=== PATIENT | female | born 1965 | race Caucasian/White ===

== ENCOUNTER 2017-05-31 14:33 | Inpatient (IN) | payer MEDICAID ==
[2017-05-31] MEDS ORDERED: ALPRAZolam 0.25 MG TAB PO PRN (18:56)
[2017-05-31] MEDS ORDERED: HYDROcodone/APAP 5-325MG 1 EACH TAB PO PRN (18:56)
[2017-05-31] MEDS ORDERED: ACETAMINOPHEN TAB 325 MG TAB PO PRN (18:56)
[2017-05-31] MEDS ORDERED: NALOXONE 0.4 MG/ML 1 ML VIAL IV PRN (18:56)
[2017-05-31] MEDS ORDERED: MELATONIN 3 MG TABLET PO PRN (18:56)
[2017-05-31] MEDS ORDERED: HYDROmorphone 2 MG/ML 1 ML SYRINGE IVP PRN (18:58)
[2017-05-31 19:51] LABS: ALT 59 U/L (9-52); AST 36 U/L (14-36); Albumin 3.2 g/dL (3.5-5.0); Alkaline Phosphatase 130 U/L (38-126); Anion Gap 11 mmol/L; Blood Urea Nitrogen 12 mg/dL (7-17); Calcium 9.1 mg/dL (8.4-10.2); Carbon Dioxide 29 mmol/L (22-30); Chloride 101 mmol/L (98-107); Glucose 288 mg/dL (74-99); Magnesium 1.7 mg/dL (1.6-2.3); Sodium 141 mmol/L (137-145); Total Bilirubin 0.2 mg/dL (0.2-1.3); Total Protein 5.9 g/dL (6.3-8.2)
[2017-05-31 19:55] LABS: Basophils % (A) 0 %; Eosinophils # (A) 0.1 k/uL (0-0.7); Eosinophils % (A) 1 %; HCT 31.7 % (34.0-46.0); HGB 10.1 gm/dL (11.4-16.0); Hypochromasia Slight; Lymphocytes # (A) 1.5 k/uL (1.0-4.8); Lymphocytes % (A) 20 %; MCH 28.7 pg (25.0-35.0); MCHC 31.9 g/dL (31.0-37.0); Mean Platelet Volume 8.1; Monocytes # (A) 0.2 k/uL (0-1.0); Monocytes % (A) 3 %; Neutrophils # (A) 5.6 k/uL (1.3-7.7); Neutrophils % (A) 74 %; Platelet Count 344 k/uL (150-450); RBC 3.52 m/uL (3.80-5.40); RDW 14.4 % (11.5-15.5); WBC 7.6 k/uL (3.8-10.6)
[2017-05-31 19:57] LABS: Potassium 3.9 mmol/L (3.5-5.1)
[2017-05-31] MEDS ORDERED: ALBUTEROL NEBULIZED 2.5 MG/3 ML INHALATION SCH (20:00)
[2017-05-31] MEDS ORDERED: IPRATROPIUM 0.5 MG/2.5 ML NEBU INHALATION SCH (20:00)
[2017-05-31] MEDS ORDERED: ALBUTEROL NEB (CONC) 2.5 MG/0.5 ML INHALATION SCH (20:00)
[2017-05-31 20:28] VITALS: BMI 34.7
--- NOTE | 2017-05-31 20:33 | XR ---
EXAMINATION TYPE: XR chest 1V portable DATE OF EXAM: 05/31/2017 CLINICAL HISTORY: Difficulty breathing and pneumonia. TECHNIQUE: Single AP portable upright view of the chest is obtained. COMPARISON: None. FINDINGS: There is chronic parenchymal change with patchy right medial basilar opacity. Suspect smal l left pleural effusion and associated left basilar atelectasis and/or infiltrate. Upper lungs are cl ear without pneumothorax. Cardiac silhouette size is stable and upper limits of normal with atheroscl erotic aorta. Osseous structures are intact. IMPRESSION: Suspicious patchy right medial basilar infiltrate and/or atelectasis with small left pleu ral effusion and associated left basilar atelectasis. Progress two-view chest x-ray advised.
[2017-05-31] MEDS: cefTRIAXone IN SWFI 1,000 MG/10 ML SYRINGE IVP SCH (20:56)
[2017-05-31] MEDS ORDERED: IPRATROPIUM-ALBUTEROL 3 ML NEB INHALATION PRN (20:56)
[2017-05-31] MEDS: SODIUM CHLORIDE 0.9% 1,000 ML IV SCH (20:56)
[2017-05-31] MEDS: AZITHROMYCIN 500 MG in SODIUM CHLORIDE 0.9% 250 ML IVPB SCH (20:57)
[2017-05-31] MEDS: INSULIN ASPART 100 UNIT/ML 1 ML 10 ML VIAL SQ SCH (20:57)
[2017-05-31] MEDS: HEPARIN SODIUM,PORCINE 5,000 UNIT/ML 1 ML VIAL SQ SCH (20:57)
[2017-05-31] MEDS: SYMBICORT 160-4.5 MCG INHALER INHALATION SCH (20:57)
[2017-05-31] MEDS: methylPREDNISolone SOD SUCCI 125 MG/2 ML VIAL IV SCH (20:58)
[2017-05-31 23:36] LABS: Hemoglobin A1C 8.6 % (4.0-6.0)
[2017-06-01 00:59] LABS: Appearance,Urine Clear (Clear); Bilirubin,Urine Negative (Negative); Blood,Urine Negative (Negative); Color,Urine Light Yellow; Glucose,Urine (UA) 4+ (Negative); Ketones,Urine Negative (Negative); Leukocyte Esterase,Urine Negative (Negative); Nitrite,Urine Negative (Negative); Protein,Urine Negative (Negative); Specific Gravity,Urine 1.022 (1.001-1.035); Urobilinogen,Urine <2.0 mg/dL (<2.0)
[2017-06-01] MEDS: methylPREDNISolone SOD SUCCI 125 MG/2 ML VIAL IV SCH ×4 (05:14→23:17)
[2017-06-01 06:51] LABS: Basophils % (A) 0 %; Eosinophils % (A) 0 %; HCT 36.4 % (34.0-46.0); Hypochromasia Moderate; Lymphocytes % (A) 12 %; MCH 28.4 pg (25.0-35.0); MCHC 30.3 g/dL (31.0-37.0); MCV 93.7 fL (80.0-100.0); Mean Platelet Volume 8.6; Monocytes # (A) 0.1 k/uL (0-1.0); Monocytes % (A) 1 %; Neutrophils # (A) 6.7 k/uL (1.3-7.7); Neutrophils % (A) 85 %; Platelet Count 354 k/uL (150-450); RBC 3.89 m/uL (3.80-5.40); RDW 14.8 % (11.5-15.5); WBC 7.9 k/uL (3.8-10.6)
[2017-06-01 07:14] LABS: Blood Urea Nitrogen 13 mg/dL (7-17); Chloride 99 mmol/L (98-107)
[2017-06-01 07:29] LABS: Glucose,Whole Blood 437 mg/dL (75-99)
[2017-06-01 07:34] LABS: Anion Gap 12 mmol/L; Calcium 9.7 mg/dL (8.4-10.2); Carbon Dioxide 26 mmol/L (22-30); Sodium 137 mmol/L (137-145)
[2017-06-01] MEDS ORDERED: INSULIN REGULAR BOLUS (FROM DRIP BAG) IV ONE (07:53)
[2017-06-01 07:57] LABS: Glucose 535 mg/dL (74-99)
[2017-06-01] MEDS: INSULIN ASPART 100 UNIT/ML 1 ML 10 ML VIAL SQ SCH ×3 (08:00→17:30)
[2017-06-01] MEDS: amLODIPine 10 MG TAB PO SCH (08:05)
[2017-06-01] MEDS: METOPROLOL SUCCINATE (ER) 100 MG TAB.ER.24H PO SCH (08:05)
[2017-06-01] MEDS: PANTOPRAZOLE 40 MG TABLET PO SCH (08:05)
[2017-06-01] MEDS: LOSARTAN 50 MG TAB PO SCH (08:05)
[2017-06-01] MEDS: HEPARIN SODIUM,PORCINE 5,000 UNIT/ML 1 ML VIAL SQ SCH ×2 (08:05→21:39)
[2017-06-01] MEDS: metFORMIN 500 MG TAB PO SCH ×2 (08:07→23:17)
[2017-06-01] MEDS: INSULIN REGULAR 100 UNIT in SODIUM CHLORIDE 0.9% 100 ML IV SCH ×3 (08:39→11:16)
[2017-06-01 08:55] LABS: Glucose,Whole Blood 401 mg/dL (75-99)
[2017-06-01 09:09] LABS: Glucose,Whole Blood 488 mg/dL (75-99)
[2017-06-01] MEDS: IPRATROPIUM-ALBUTEROL 3 ML NEB INHALATION SCH ×4 (09:53→20:02)
[2017-06-01] MEDS: SYMBICORT 160-4.5 MCG INHALER INHALATION SCH ×2 (09:56→20:02)
[2017-06-01 09:58] LABS: Glucose,Whole Blood 444 mg/dL (75-99)
--- NOTE | 2017-06-01 10:00 | HP ---
HISTORY AND PHYSICAL CHIEF COMPLAINT: Shortness of breath, cough and hemoptysis. HISTORY OF PRESENT ILLNESS: This 51-year-old woman with a past medical history of COPD, diabetes, hypertension, history pneumonia, being followed by primary physician in [facility] presented to [facility] about 5 days ago with complaints of shortness of breath, cough and hemoptysis. Right lower pneumonia suspected. CT scan showed lymph node enlargement also. The patient was given broad-spectrum IV antibiotics. The patient apparently had also on presentation. Over the past several days the patient is not making significant improvement. The pneumonia was worsening and the patient also developed hypoxia and as well as new pleural effusion also and physician in [place] discussed the case with us and directly transferred the patient to [facility]. The patient apparently had flu symptoms 2 weeks prior to the onset. Otherwise there is no history of fever, rigors, chills. No headache, loss of consciousness, seizures. PAST MEDICAL HISTORY: History of COPD, diabetes, hypertension, history pneumonia. MEDICATIONS: Prior to admission, home medications are: 1. Glucophage 1000 mg p.o. b.i.d. 2. Glucotrol 5 mg p.o. daily. 3. Norvasc 10 mg p.o. daily. 4. Ventolin 2.5 q.6h p.r.n. 5. Toprol-XL 100 mg daily. 6. Cozaar 100 mg daily. 7. Symbicort 80/4.5 two puffs b.i.d. ALLERGIES: HYDROCHLOROTHIAZIDE. FAMILY HISTORY: No history of any heart disease or strokes in the family. SOCIAL HISTORY: Previous history of smoking and alcohol. REVIEW OF SYSTEMS: ENT: No diminished hearing or vision. CARDIOVASCULAR: No angina or palpitations. RESPIRATORY: As mentioned earlier. GI: No nausea. : No dysuria. NERVOUS SYSTEM: No numbness or weakness. ALLERGY/IMMUNOLOGY: No asthma. MUSCULOSKELETAL: As mentioned earlier. HEMATOLOGY/ONCOLOGY: No anemia. ENDOCRINE: Diabetes. CONSTITUTIONAL: As mentioned earlier. DERMATOLOGY: Negative. RHEUMATOLOGY: Negative. PSYCHIATRY: As mentioned earlier. PHYSICAL EXAMINATION: Alert and oriented x3. Pulse is 106. Blood pressure is 131/76, respiration 20, temperature 98 degrees, pulse ox 94% on supplement 2 L nasal cannula. HEENT: Conjunctivae normal. Oral mucosa moist. NECK: No jugular venous distention. No carotid bruit. No lymph node enlargement. Breathing efforts are markedly increased CARDIOVASCULAR: S1, S2 muffled. No S3, no S4. RESPIRATORY: Breath sounds diminished in the bases. Bilateral scattered and expiratory wheezing and rhonchi and crackles heard. No bronchial breathing heard. ABDOMEN: Soft, nontender. No mass palpable. LEGS: No edema, no swelling. NERVOUS SYSTEM: Higher functions as mentioned earlier, moves all 4 limbs, no focal motor sensory deficits. LYMPHATICS: No lymphadenopathy in the neck, axillae or groin. SKIN: No ulcer, rash, bleeding. LABS: WBC 7.2, hemoglobin 10.1, creatinine 0.50, glucose is 288, ALT is 59, alkaline phosphatase 130, albumin 3.2. ASSESSMENT: 1. Acute right lower lobe pneumonia possibly gram-negative, possibly community- acquired without improvement with acute hypoxic respiratory failure. 2. Anemia normocytic anemia of chronic disease. 3. Diabetes mellitus type 2. 4. Hypertension. 5. History of pneumonia. 6. History of chronic obstructive pulmonary disease. 7. History of nicotine dependence. 8. FULL CODE. RECOMMENDATIONS AND DISCUSSION: This 51-year-old woman who presented with multiple complex medical issues, we will monitor the patient closely. Continue the current management and symptomatic treatment. Will initiate broad-spectrum IV antibiotics, pneumonia protocol, bronchodilators , steroids. Monitor blood sugars closely. Consult Dr. Zamorano. Resume the home medications. Guarded prognosis because of multiple complex medical issues. Further recommendations to follow. Influenza has been requested. Further recommendations to follow. MMODL / IJN: [id number] / MTDD
[2017-06-01 10:07] LABS: Glucose,Whole Blood 355 mg/dL (75-99)
[2017-06-01 10:42] LABS: Glucose,Whole Blood 309 mg/dL (75-99)
[2017-06-01 11:10] LABS: Glucose,Whole Blood 272 mg/dL (75-99)
[2017-06-01 11:35] LABS: Glucose,Whole Blood 226 mg/dL (75-99)
[2017-06-01 13:32] LABS: Glucose,Whole Blood 244 mg/dL (75-99)
--- NOTE | 2017-06-01 15:33 | P.CNPUL ---
History of Present Illness Consult date: 06/01/17 Reason for consult: dyspnea, COPD History of present illness: Obese 51-year-old female patient with known history of COPD, diabetes, and hypertension, who lives in [place] and the patient got hospitalized to [facility] because of a right lower lobe pneumonia. During her hospital stay the patient was given a combination of Rocephin and Zithromax. A CAT scan of the chest was done that showed some abnormal mediastinal lymphadenopathy. Based on the fact that the CAT scan of the chest was abnormal and based on the fact that she was not being totally weaned off FiO2, the patient got moved to [facility] for further evaluation. The patient is clinically getting better. Currently she is on 2 L of oxygen by nasal cannula. I reviewed the chest x-ray it showed some limited residual right lower lobe pulmonary infiltrate. She is still bronchospastic and wheezy and this is typical of COPD exacerbation. She is still maintained on a combination of bronchodilators and steroids and the patient was placed on insulin drip for blood sugar control. No pleurisy. No hemoptysis. No fever. No chills. No night sweats. No children history. Her Legionella urine antigen that was done and [facility] was negative. Blood cultures of been negative. No microbial diagnoses been established. The patient is an ex smoker. She has no other complaints otherwise for now. Review of Systems Constitutional: Reports fatigue, Reports lethargy, Reports weight gain Eyes: denies blurred vision, denies bulging eye, denies decreased vision Ears: deny: decreased hearing, ear discharge, earache Ears, nose, mouth and throat: Denies headache, Denies sore throat Cardiovascular: Reports decreased exercise tolerance, Reports dyspnea on exertion, Reports shortness of breath Respiratory: Reports cough, Reports dyspnea, Reports wheezing Gastrointestinal: Reports loss of appetite Genitourinary: Denies dysuria, Denies hematuria Musculoskeletal: absent: ankle pain, ankle stiffness, ankle swelling Integumentary: Denies pruritus, Denies rash Neurological: Reports weakness Psychiatric: Denies anxiety, Denies depression Endocrine: Reports fatigue, Reports polyuria, Reports recent glucocorticoid use Hematologic/Lymphatic: Reports as per HPI Allergic/Immunologic: Reports as per HPI Past Medical History Past Medical History: COPD, Diabetes Mellitus, Hypertension, Pneumonia History of Any Multi-Drug Resistant Organisms: None Reported Past Surgical History: No Surgical Hx Reported Smoking Status: Former smoker Past Drug Use History: None Reported Medications and Allergies Home Medications Medication Instructions Recorded Confirmed Type Albuterol Nebulized [Ventolin 2.5 mg INHALATION RT-Q6H PRN 05/31/17 05/31/17 History Nebulized] Budesonide/Formoterol Fumarate 2 puff INHALATION RT-BID 05/31/17 05/31/17 History [Symbicort 80-4.5 Mcg Inhaler] Losartan Potassium [Cozaar] 100 mg PO DAILY 05/31/17 05/31/17 History Metoprolol Succinate (ER) [Toprol 100 mg PO DAILY 05/31/17 05/31/17 History Xl] amLODIPine [Norvasc] 10 mg PO DAILY 05/31/17 05/31/17 History glipiZIDE [Glucotrol] 5 mg PO DAILY 05/31/17 05/31/17 History metFORMIN HCL [Glucophage] 1,000 mg PO BID 05/31/17 05/31/17 History Allergies Allergy/AdvReac Type Severity Reaction Status Date / Time hydrochlorothiazide Allergy Rash/Hives Verified 05/31/17 19:58 Physical Exam Vitals: Vital Signs Temp Pulse Pulse Resp BP Pulse Ox 06/01/17 14:34 97.8 F 98 16 131/76 95 06/01/17 13:45 86 06/01/17 13:34 88 06/01/17 10:05 86 06/01/17 09:53 86 06/01/17 08:04 97.8 F 85 16 164/93 96 06/01/17 03:05 98 F 85 17 145/81 97 06/01/17 00:00 85 17 05/31/17 23:19 98.2 F 94 18 122/77 98 05/31/17 20:00 85 17 05/31/17 19:17 16 05/31/17 18:56 96 Intake and Output 06/01/17 06/01/17 06/01/17 06:59 14:59 22:59 Intake Total 1160 543.583 Balance 1160 543.583 Intake: IV 100 Insulin Regular 100 unit 100 In Sodium Chloride 0.9% 100 ml @ Titrate IV .Q0M [facility] Rx#:[id number] Intake, IV Titration 160 83.583 Amount Insulin Regular 100 unit 83.583 In Sodium Chloride 0.9% 100 ml @ Titrate IV .Q0M [facility] Rx#:[id number] Sodium Chloride 0.9% 1, 160 000 ml @ 20 mls/hr IV . Q24H [facility] Rx#:[id number] Oral 1000 360 Other: # Voids 3 3 Obese, comfortable likely distress.The patient appeared well nourished and normally developed. Vital signs as documented. Head exam is unremarkable. No scleral icterus or corneal arcus noted. Neck is without jugular venous distension, thyromegaly, or carotid bruits. Carotid upstrokes are brisk bilaterally. Lungs are diminished bilaterally along with some scattered expiratory wheezes heard throughout the lung bartlett.. Cardiac exam reveals the PMI to be normally sized and situated. Rhythm is regular. First and second heart sounds normal. No murmurs, rubs or gallops. Abdominal exam reveals normal bowel sounds, no masses, no organomegaly and no aortic enlargement. Extremities are nonedematous and both femoral and pedal pulses are normal.Examination of the skin revealed no evidence of significant rashes, suspicious appearing nevi or other concerning lesions. Neurologically the patient is awake and alert and there is no focal neurological deficit Results - Laboratory Findings CBC and BMP: 06/01/17 06:10 06/01/17 06:10 Abnormal lab findings: Abnormal Labs 05/31/17 05/31/17 05/31/17 19:20 19:20 19:20 RBC 3.52 L Hgb 10.1 L Hct 31.7 L MCHC Creatinine 0.50 L Glucose 288 H POC Glucose (mg/dL) Hemoglobin A1c 8.6 H ALT 59 H Alkaline Phosphatase 130 H Total Protein 5.9 L Albumin 3.2 L Urine Glucose (UA) 05/31/17 06/01/17 06/01/17 21:30 06:10 06:10 RBC Hgb 11.0 L Hct MCHC 30.3 L Creatinine 0.43 L Glucose 535 H* POC Glucose (mg/dL) Hemoglobin A1c ALT Alkaline Phosphatase Total Protein Albumin Urine Glucose (UA) 4+ H 06/01/17 06/01/17 06/01/17 07:24 08:32 09:07 RBC Hgb Hct MCHC Creatinine Glucose POC Glucose (mg/dL) 437 H 401 H 488 H Hemoglobin A1c ALT Alkaline Phosphatase Total Protein Albumin Urine Glucose (UA) 06/01/17 06/01/17 06/01/17 09:37 10:05 10:38 RBC Hgb Hct MCHC Creatinine Glucose POC Glucose (mg/dL) 444 H 355 H 309 H Hemoglobin A1c ALT Alkaline Phosphatase Total Protein Albumin Urine Glucose (UA) 06/01/17 06/01/17 06/01/17 11:00 11:32 13:28 RBC Hgb Hct MCHC Creatinine Glucose POC Glucose (mg/dL) 272 H 226 H 244 H Hemoglobin A1c ALT Alkaline Phosphatase Total Protein Albumin Urine Glucose (UA) - Diagnostic Findings Chest x-ray: image reviewed Assessment and Plan Plan: Assessment 1 acute COPD exacerbation secondary to a right lower lobe pneumonia. The patient was treated essentially at [facility] with good clinical response and she is in the process of recovering 2 abnormal mediastinal lymphadenopathy. Based on the report, the patient has some nonspecific enlargement of the pretracheal and subcarinal lymph nodes. The films will be reviewed once the images uploaded to our system. No clear concern for an underlying malignancy. 3 right lower lobe pneumonia, improving clinically 4 COPD exacerbation 5 hypoxemia secondary to above the patient is improving and currently she is on 2 L of oxygen nasal cannula 6 diabetes mellitus with steroid-induced hyperglycemia 7 hypertension 8 obesity Plan Continue same antibiotic coverage. Continue bronchodilators. Continue steroids. Wean down the FiO2 as tolerated. No significant concern for malignancy. Nevertheless, the CAT scan of the chest will be uploaded and to be reviewed. My recommendation is that the patient would likely need a follow-up CAT scan of the chest in 4-6 months time to monitor this lymph nodes then underlying a biopsy. The final recommendation will be done once the CAT scan films are reviewed. The patient is an ex-smoker. Smoking cessation counseling was done. Outpatient PFT will be needed. Weight loss is encouraged. We'll continue to follow.
[2017-06-01 15:55] LABS: Glucose,Whole Blood 295 mg/dL (75-99)
[2017-06-01 17:05] LABS: Glucose,Whole Blood 272 mg/dL (75-99)
[2017-06-01] MEDS: cefTRIAXone IN SWFI 1,000 MG/10 ML SYRINGE IVP SCH (17:26)
[2017-06-01 19:11] LABS: Glucose,Whole Blood 303 mg/dL (75-99)
[2017-06-01 19:43] LABS: Hemoglobin A1C 8.9 % (4.0-6.0)
[2017-06-01 21:22] LABS: Glucose,Whole Blood 326 mg/dL (75-99)
[2017-06-01] MEDS: AZITHROMYCIN 500 MG in SODIUM CHLORIDE 0.9% 250 ML IVPB SCH (21:39)
[2017-06-01] MEDS: SODIUM CHLORIDE 0.9% 1,000 ML IV SCH (21:46)
[2017-06-01 23:38] LABS: Glucose,Whole Blood 323 mg/dL (75-99)
[2017-06-02] MEDS: INSULIN REGULAR 100 UNIT in SODIUM CHLORIDE 0.9% 100 ML IV SCH (01:21)
[2017-06-02 01:39] LABS: Glucose,Whole Blood 315 mg/dL (75-99)
[2017-06-02 03:20] LABS: Glucose,Whole Blood 216 mg/dL (75-99)
[2017-06-02 05:08] LABS: Glucose,Whole Blood 212 mg/dL (75-99)
[2017-06-02] MEDS: methylPREDNISolone SOD SUCCI 125 MG/2 ML VIAL IV SCH ×2 (05:13→08:31)
[2017-06-02 07:08] LABS: Glucose,Whole Blood 224 mg/dL (75-99)
[2017-06-02 07:10] LABS: Basophils % (A) 0 %; Eosinophils % (A) 0 %; HCT 31.7 % (34.0-46.0); HGB 10.3 gm/dL (11.4-16.0); Hypochromasia Slight; Lymphocytes # (A) 1.1 k/uL (1.0-4.8); Lymphocytes % (A) 10 %; MCH 29.3 pg (25.0-35.0); MCHC 32.5 g/dL (31.0-37.0); Monocytes # (A) 0.1 k/uL (0-1.0); Monocytes % (A) 1 %; Neutrophils # (A) 9.5 k/uL (1.3-7.7); Neutrophils % (A) 88 %; Platelet Count 382 k/uL (150-450); RBC 3.52 m/uL (3.80-5.40); RDW 14.6 % (11.5-15.5); WBC 10.8 k/uL (3.8-10.6)
[2017-06-02 07:32] LABS: Anion Gap 12 mmol/L; Blood Urea Nitrogen 14 mg/dL (7-17); Calcium 9.6 mg/dL (8.4-10.2); Carbon Dioxide 27 mmol/L (22-30); Chloride 100 mmol/L (98-107); Glucose 217 mg/dL (74-99); Potassium 4.4 mmol/L (3.5-5.1); Sodium 139 mmol/L (137-145)
[2017-06-02 08:25] VITALS: RESP 16
--- NOTE | 2017-06-02 08:28 | PN ---
PROGRESS NOTE DATE OF SERVICE: 06/01/17 This 51-year-old woman admitted with acute lower lobe pneumonia also had recently had possibly flu-like syndrome. The patient was at an outside Hospital about 4 days with IV antibiotics and the patient was transferred because of lack of improvement the patient started on broad-spectrum IV antibiotics and the patient also noted to have abnormal mediastinal lymphadenopathy at this time. Dr. Zamorano is being consulted. The patient also had hypoxemia and acute respiratory failure also. Patient also had blood sugar elevated at 535. Patient started on insulin drip and with better control of blood sugar at this time. PAST MEDICAL HISTORY: Reviewed. REVIEW OF SYSTEMS: Cardio system: As mentioned earlier. Respiratory: As mentioned earlier. GI no nausea or vomiting. no dysuria. Nervous system: No numbness, weakness. CURRENT MEDICATIONS ARE: Reviewed and include: 1. Tylenol 650 q.6 p.r.n. 2. [place] 5 mg q.4h p.r.n. 3. DuoNeb q.i.d. and p.r.n. 4. Xanax 0.5 q.6h p.r.n. 5. Norvasc 10 mg daily. 7. Symbicort b.i.d. 8. Rocephin 1 g daily. 9. Heparin 5000 subcu b.i.d. 10.Dilaudid. 11.Cozaar 100 mg. 12.Melatonin 50 mg q.h.s. p.r.n. 13.Glucovance 1000 mg p.o. b.i.d. 14.Solu-Medrol 60 IV q.6h. 15.Toprol-XL 10 mg daily. 16.Protonix 40 mg daily. 17.Narcan p.r.n. PHYSICAL EXAM: Patient is alert, oriented x3. Pulse 98, blood pressure 130/70, respirations 16 , temperature 97.8, pulse ox 94% on nasal cannula. HEENT: Conjunctivae normal. Oral mucosa moist. Neck is no jugular venous distention. No carotid bruit. No lymph node enlargement. Cardiovascular S1-S2 muffled. No S3, no S4. Respiratory: Breath sounds diminished in the bases. Bilateral scattered rhonchi and crackles. No bronchial breath sounds. ABDOMEN: Soft, nontender. No mass palpable. Legs no edema and no swelling. Nervous system: Higher functions as mentioned earlier, moves all 4 limbs, no focal motor or sensory deficits. Lymphatics: No lymph nodes palpable in the neck, axillae or groin. Skin: No ulcer, rash or bleeding. LABS: WBC 7.2, hemoglobin 11, other labs noted. Chest x-ray reviewed personally. ASSESSMENT: 1. Chronic obstructive pulmonary disease acute exacerbation with acute right lower lobe pneumonia possibly gram-negative with acute hypoxic respiratory failure. 2. Anemia normocytic anemia of chronic disease. 3. Diabetes type 2. 4. Hypertension. 5. History of pneumonia. 6. History of chronic obstructive pulmonary disease. 7. History of nicotine dependence. 8. Possible history of recent flu. 9. Diabetes type 2 uncontrolled with possibly secondary to steroids. RECOMMENDATIONS AND DISCUSSION: This 51-year-old woman who presented with multiple complex medical issues, we will monitor the patient closely. Continue the current medications. Continue broad- spectrum IV antibiotics. Continue insulin drip. Continue the bronchodilators. Continue with steroids. Closely follow with Dr. Zamorano. See orders for details. We will await for the final cultures of the sputum and blood. Prognosis guarded. Further recommendations to follow. MMODL / IJN: [id number] / MTDLiam
[2017-06-02] MEDS: amLODIPine 10 MG TAB PO SCH (08:31)
[2017-06-02] MEDS: metFORMIN 500 MG TAB PO SCH ×2 (08:31→22:26)
[2017-06-02] MEDS: LOSARTAN 50 MG TAB PO SCH (08:31)
[2017-06-02] MEDS: HEPARIN SODIUM,PORCINE 5,000 UNIT/ML 1 ML VIAL SQ SCH ×2 (08:31→22:25)
[2017-06-02] MEDS: METOPROLOL SUCCINATE (ER) 100 MG TAB.ER.24H PO SCH (08:31)
[2017-06-02] MEDS: INSULIN ASPART 100 UNIT/ML 1 ML 10 ML VIAL SQ SCH ×6 (08:31→22:25)
[2017-06-02] MEDS: PANTOPRAZOLE 40 MG TABLET PO SCH (08:31)
[2017-06-02] MEDS: SYMBICORT 160-4.5 MCG INHALER INHALATION SCH ×2 (09:01→21:52)
[2017-06-02] MEDS: IPRATROPIUM-ALBUTEROL 3 ML NEB INHALATION SCH ×4 (09:02→21:52)
[2017-06-02 09:14] LABS: Glucose,Whole Blood 359 mg/dL (75-99)
--- NOTE | 2017-06-02 09:50 | XR ---
EXAMINATION TYPE: XR chest 2V DATE OF EXAM: 06/02/2017 COMPARISON: 05/31/2017 HISTORY: Follow-up from right lower lobe pneumonia TECHNIQUE: Frontal and lateral views of the chest are obtained. FINDINGS: There is improved aeration of the right lung base with resolution of the previously seen a irspace disease. Minimal residual left basilar linear platelike subsegmental atelectasis is noted. Co pious soft tissues obscure the costophrenic angles. No focal opacity, pulmonary vascular congestion o r pneumothorax are seen. Cardiac silhouette is mildly enlarged. Multilevel mild degenerative changes of the thoracic spine are noted. IMPRESSION: 1. Resolution of the previously seen right middle lobe pneumonia. No new focal opacity on today's exa mination. 2. Persistent left basilar linear platelike subsegmental atelectasis.
[2017-06-02 11:20] LABS: Glucose,Whole Blood 269 mg/dL (75-99)
--- NOTE | 2017-06-02 11:49 | P.PN ---
Subjective Progress Note Date: 06/02/17 Principal diagnosis: Acute COPD exacerbation secondary to a right lower lobe pneumonia, improved Obese 51-year-old female patient with known history of COPD, diabetes, and hypertension, who lives in [place] and the patient got hospitalized to [facility] because of a right lower lobe pneumonia. During her hospital stay the patient was given a combination of Rocephin and Zithromax. A CAT scan of the chest was done that showed some abnormal mediastinal lymphadenopathy. Based on the fact that the CAT scan of the chest was abnormal and based on the fact that she was not being totally weaned off FiO2, the patient got [facility] evaluation. The patient is clinically getting better. Currently she is on 2 L of oxygen by nasal cannula. I reviewed the chest x-ray it showed some limited residual right lower lobe pulmonary infiltrate. She is still bronchospastic and wheezy and this is typical of COPD exacerbation. She is still maintained on a combination of bronchodilators and steroids and the patient was placed on insulin drip for blood sugar control. No pleurisy. No hemoptysis. No fever. No chills. No night sweats. No children history. Her Legionella urine antigen that was done and [facility] was negative. Blood cultures of been negative. No microbial diagnoses been established. The patient is an ex smoker. She has no other complaints otherwise for now. On 06/02/2017 patient is seen in follow-up. Doing very well, currently on room air, denies any distress. She has been ambulating within the room and in the hallway, without respiratory distress. Her O2 sat on room air was 93%. Her vital signs are stable. Afebrile. Lung sounds are clear, diminished at the bases. She still has mildly bronchospastic cough, but this is improved. Microbiology results have been reviewed, preliminary sputum Gram stain showed no organisms. Blood and urine cultures are negative. She remains on insulin drip for steroid-induced hyperglycemia. We will switch the IV Solu-Medrol to prednisone today. Chest x-ray today showed resolution of the previously seen right middle lobe pneumonia, no new focal opacities, and persistent left basilar linear platelike subsegmental atelectasis present. Objective - Vital Signs Vital signs: Vital Signs Temp 97.7 F 06/02/17 07:00 Pulse 84 06/02/17 09:19 Resp 16 06/02/17 07:00 BP 126/85 06/02/17 07:00 Pulse Ox 93 L 06/02/17 07:00 Intake & Output 06/01/17 06/02/17 06/02/17 18:59 06:59 18:59 Intake Total 699.125 6214.734 38.933 Output Total 200 Balance 418.835 2409.734 38.933 Intake: IV 100 100 Insulin Regular 100 unit 100 100 In Sodium Chloride 0.9% 100 ml @ Titrate IV .Q0M [facility] Rx#:[id number] Intake, IV Titration 103.250 253.734 38.933 Amount Insulin Regular 100 unit 103.250 93.734 38.933 In Sodium Chloride 0.9% 100 ml @ Titrate IV .Q0M [facility] Rx#:[id number] Sodium Chloride 0.9% 1, 160 000 ml @ 20 mls/hr IV . Q24H [facility] Rx#:[id number] Oral 360 600 Blood Product 250 Output: Urine 200 Other: Voiding Method Toilet Toilet # Voids 3 3 - Exam GENERAL EXAM: Alert, active, comfortable in no apparent distress. HEAD: Normocephalic/atraumatic. EYES: Normal reaction of pupils, equal size. Conjunctiva pink, sclera white. NOSE: Clear with pink turbinates. THROAT: No erythema or exudates. NECK: No masses, no JVD, no thyroid enlargement, no adenopathy. CHEST: No chest wall deformity. Symmetrical expansion. LUNGS: Equal air entry with no crackles, wheeze, rhonchi or dullness. Mild bronchospastic cough is still present, but this is improved. CVS: Regular rate and rhythm, normal S1 and S2, no gallops, no murmurs, no rubs ABDOMEN: Soft, nontender. No hepatosplenomegaly, normal bowel sounds, no guarding or rigidity. EXTREMITIES: No clubbing, no edema, no cyanosis, 2+ pulses and upper and lower extremities. MUSCULOSKELETAL: Muscle strength and tone normal. SPINE: No scoliosis or deformity SKIN: No rashes CENTRAL NERVOUS SYSTEM: Alert and oriented -3. No focal deficits, tone is normal in all 4 extremities. PSYCHIATRIC: Alert and oriented -3. Appropriate affect. Intact judgment and insight. - Labs CBC & Chem 7: 06/02/17 06:39 06/02/17 06:39 Labs: Abnormal Lab Results - Last 24 Hours (Table) 06/01/17 06/01/17 06/01/17 Range/Units 06:10 13:28 15:33 WBC (3.8-10.6) k/uL RBC (3.80-5.40) m/uL Hgb (11.4-16.0) gm/dL Hct (34.0-46.0) % Neutrophils # (1.3-7.7) k/uL Creatinine (0.52-1.04) mg/dL Glucose (74-99) mg/dL POC Glucose (mg/dL) 244 H 295 H (75-99) mg/dL Hemoglobin A1c 8.9 H (4.0-6.0) % 06/01/17 06/01/17 06/01/17 Range/Units 16:55 19:04 21:10 WBC (3.8-10.6) k/uL RBC (3.80-5.40) m/uL Hgb (11.4-16.0) gm/dL Hct (34.0-46.0) % Neutrophils # (1.3-7.7) k/uL Creatinine (0.52-1.04) mg/dL Glucose (74-99) mg/dL POC Glucose (mg/dL) 272 H 303 H 326 H (75-99) mg/dL Hemoglobin A1c (4.0-6.0) % 06/01/17 06/02/17 06/02/17 Range/Units 23:13 01:20 03:11 WBC (3.8-10.6) k/uL RBC (3.80-5.40) m/uL Hgb (11.4-16.0) gm/dL Hct (34.0-46.0) % Neutrophils # (1.3-7.7) k/uL Creatinine (0.52-1.04) mg/dL Glucose (74-99) mg/dL POC Glucose (mg/dL) 323 H 315 H 216 H (75-99) mg/dL Hemoglobin A1c (4.0-6.0) % 06/02/17 06/02/17 06/02/17 Range/Units 05:04 06:39 06:39 WBC 10.8 H (3.8-10.6) k/uL RBC 3.52 L (3.80-5.40) m/uL Hgb 10.3 L (11.4-16.0) gm/dL Hct 31.7 L (34.0-46.0) % Neutrophils # 9.5 H (1.3-7.7) k/uL Creatinine 0.42 L (0.52-1.04) mg/dL Glucose 217 H (74-99) mg/dL POC Glucose (mg/dL) 212 H (75-99) mg/dL Hemoglobin A1c (4.0-6.0) % 06/02/17 06/02/17 06/02/17 Range/Units 06:53 09:12 10:59 WBC (3.8-10.6) k/uL RBC (3.80-5.40) m/uL Hgb (11.4-16.0) gm/dL Hct (34.0-46.0) % Neutrophils # (1.3-7.7) k/uL Creatinine (0.52-1.04) mg/dL Glucose (74-99) mg/dL POC Glucose (mg/dL) 224 H 359 H 269 H (75-99) mg/dL Hemoglobin A1c (4.0-6.0) % Microbiology - Last 24 Hours (Table) 05/31/17 21:30 Urine Culture - Final Urine,Clean Catch 05/31/17 19:20 Blood Culture - Preliminary Blood No Growth after 24 hours 06/01/17 04:00 Gram Stain - Preliminary Sputum Assessment and Plan Plan: Assessment: 1 acute COPD exacerbation secondary to a right lower lobe pneumonia. The patient was treated essentially at [facility] with good clinical response and she is in the process of recovering 2 abnormal mediastinal lymphadenopathy. Based on the report, the patient has some nonspecific enlargement of the pretracheal and subcarinal lymph nodes. The films will be reviewed once the images uploaded to our system. No clear concern for an underlying malignancy. 3 right lower lobe pneumonia, improving clinically 4 COPD exacerbation 5 hypoxemia secondary to above the patient is improving, patient is currently off the oxygen with O2 sat at 93%. 6 diabetes mellitus with steroid-induced hyperglycemia 7 hypertension 8 obesity Plan We will switch IV Solu-Medrol to oral prednisone, continue bronchodilators. And has significantly improved in terms of dyspnea and wheezing. Still has the mild bronchospastic cough, but this has improved as well. Has been ambulating in the hallway tolerating activity very well. From pulmonary standpoint she can be considered for discharge today on outpatient course of Zithromax and Ceftin, and prednisone taper. She will need an outpatient follow-up with Dr. Zamorano, regarding the CT chest results showing mediastinal lymphadenopathy. Smoking cessation was reinforced. She will need outpatient PFT. I performed a history & physical examination of the patient and discussed their management with my nurse practitioner, Flaca Barr. I reviewed the nurse practitioner's note and agree with the documented findings and plan of care. Lung sounds are clear, diminished at the bases. The findings and the impression was discussed with the patient. I attest to the documentation by the nurse practitioner. Time with Patient: Less than 30
[2017-06-02 12:59] LABS: Glucose,Whole Blood 146 mg/dL (75-99)
[2017-06-02] MEDS: INSULIN DETEMIR 100 UNIT/ML 10 ML VIAL SQ SCH ×2 (13:06→22:43)
[2017-06-02 15:18] LABS: Glucose,Whole Blood 256 mg/dL (75-99)
[2017-06-02 16:50] LABS: Glucose,Whole Blood 280 mg/dL (75-99)
[2017-06-02] MEDS: cefTRIAXone IN SWFI 1,000 MG/10 ML SYRINGE IVP SCH (17:44)
[2017-06-02 20:29] LABS: Glucose,Whole Blood 357 mg/dL (75-99)
[2017-06-02] MEDS ORDERED: AZITHROMYCIN 500 MG TAB PO SCH (21:00)
[2017-06-02] MEDS: SODIUM CHLORIDE 0.9% 1,000 ML IV SCH (22:26)
[2017-06-03 06:58] LABS: Glucose,Whole Blood 110 mg/dL (75-99)
[2017-06-03 07:23] VITALS: BP 131/86; TEMP 98
[2017-06-03] MEDS: INSULIN DETEMIR 100 UNIT/ML 10 ML VIAL SQ SCH (08:03)
[2017-06-03] MEDS: INSULIN ASPART 100 UNIT/ML 1 ML 10 ML VIAL SQ SCH ×4 (08:03→13:16)
[2017-06-03 08:13] LABS: Basophils % (A) 0 %; Eosinophils % (A) 0 %; HGB 9.9 gm/dL (11.4-16.0); Lymphocytes # (A) 2.7 k/uL (1.0-4.8); Lymphocytes % (A) 24 %; MCHC 30.8 g/dL (31.0-37.0); Mean Platelet Volume 7.1; Monocytes # (A) 0.4 k/uL (0-1.0); Monocytes % (A) 3 %; Neutrophils # (A) 7.8 k/uL (1.3-7.7); Neutrophils % (A) 71 %; Platelet Count 387 k/uL (150-450); RBC 3.52 m/uL (3.80-5.40); RDW 14.1 % (11.5-15.5)
[2017-06-03 08:28] LABS: Anion Gap 10 mmol/L; Blood Urea Nitrogen 15 mg/dL (7-17); Calcium 9.1 mg/dL (8.4-10.2); Carbon Dioxide 29 mmol/L (22-30); Chloride 102 mmol/L (98-107); Glucose 97 mg/dL (74-99); Potassium 3.9 mmol/L (3.5-5.1); Sodium 141 mmol/L (137-145)
[2017-06-03] MEDS: PANTOPRAZOLE 40 MG TABLET PO SCH (08:29)
[2017-06-03] MEDS: HEPARIN SODIUM,PORCINE 5,000 UNIT/ML 1 ML VIAL SQ SCH (08:29)
[2017-06-03] MEDS: LOSARTAN 50 MG TAB PO SCH (08:29)
[2017-06-03] MEDS: metFORMIN 500 MG TAB PO SCH (08:29)
[2017-06-03] MEDS: METOPROLOL SUCCINATE (ER) 100 MG TAB.ER.24H PO SCH (08:29)
[2017-06-03] MEDS: amLODIPine 10 MG TAB PO SCH (08:29)
--- NOTE | 2017-06-03 08:43 | P.PN ---
Subjective Progress Note Date: 06/03/17 Principal diagnosis: Acute COPD exacerbation secondary to a right lower lobe pneumonia, improved Obese 51-year-old female patient with known history of COPD, diabetes, and hypertension, who lives in [place] and the patient got hospitalized to [facility] because of a right lower lobe pneumonia. During her hospital stay the patient was given a combination of Rocephin and Zithromax. A CAT scan of the chest was done that showed some abnormal mediastinal lymphadenopathy. Based on the fact that the CAT scan of the chest was abnormal and based on the fact that she was not being totally weaned off FiO2, the patient got moved to [facility] for further evaluation. The patient is clinically getting better. Currently she is on 2 L of oxygen by nasal cannula. I reviewed the chest x-ray it showed some limited residual right lower lobe pulmonary infiltrate. She is still bronchospastic and wheezy and this is typical of COPD exacerbation. She is still maintained on a combination of bronchodilators and steroids and the patient was placed on insulin drip for blood sugar control. No pleurisy. No hemoptysis. No fever. No chills. No night sweats. No children history. Her Legionella urine antigen that was done and [facility] was negative. Blood cultures of been negative. No microbial diagnoses been established. The patient is an ex smoker. She has no other complaints otherwise for now. On 06/02/2017 patient is seen in follow-up. Doing very well, currently on room air, denies any distress. She has been ambulating within the room and in the hallway, without respiratory distress. Her O2 sat on room air was 93%. Her vital signs are stable. Afebrile. Lung sounds are clear, diminished at the bases. She still has mildly bronchospastic cough, but this is improved. Microbiology results have been reviewed, preliminary sputum Gram stain showed no organisms. Blood and urine cultures are negative. She remains on insulin drip for steroid-induced hyperglycemia. We will switch the IV Solu-Medrol to prednisone today. Chest x-ray today showed resolution of the previously seen right middle lobe pneumonia, no new focal opacities, and persistent left basilar linear platelike subsegmental atelectasis present. J the 2017 patient seen in follow-up. Denies any worsening dyspnea, does have self-limiting coughing episodes in the mornings, is not bringing up much sputum. Cough is still mildly bronchospastic, but this continues to improve. Lung sounds are positive for some faint scattered wheezes, over the right lower lung. That otherwise continues to improve, she has been tolerating ambulation, she is on room air, with O2 sat at 97%. Remains afebrile, hemodynamically stable. Blood culture and urine culture were negative. Sputum culture still pending. A V/Q from this morning was reviewed, WBC is 11, hemoglobin is 9.9, no electrolyte abnormality, BUN is 15, creatinine 0.48. Patient was weaned off the insulin drip yesterday, blood sugars are better controlled this morning. Anticipate discharge home today. Objective - Vital Signs Vital signs: Vital Signs Temp 98.0 F 06/03/17 07:00 Pulse 69 06/03/17 07:00 Resp 16 06/03/17 07:00 BP 131/86 06/03/17 07:00 Pulse Ox 97 06/03/17 07:00 Intake & Output 06/02/17 06/03/17 06/03/17 18:59 06:59 18:59 Intake Total 1055.333 400 Balance 1055.333 400 Intake: Intake, IV Titration 55.333 Amount Insulin Regular 100 unit 55.333 In Sodium Chloride 0.9% 100 ml @ Titrate IV .Q0M [facility] Rx#:[id number] Oral 1000 400 Other: Voiding Method Toilet Toilet # Voids 3 2 1 - Exam GENERAL EXAM: Alert, active, comfortable in no apparent distress. HEAD: Normocephalic/atraumatic. EYES: Normal reaction of pupils, equal size. Conjunctiva pink, sclera white. NOSE: Clear with pink turbinates. THROAT: No erythema or exudates. NECK: No masses, no JVD, no thyroid enlargement, no adenopathy. CHEST: No chest wall deformity. Symmetrical expansion. LUNGS: Equal air entry with was some limited wheezing over right posterior lower lobe. Mild bronchospastic cough is still present, but this is improved. CVS: Regular rate and rhythm, normal S1 and S2, no gallops, no murmurs, no rubs ABDOMEN: Soft, nontender. No hepatosplenomegaly, normal bowel sounds, no guarding or rigidity. EXTREMITIES: No clubbing, no edema, no cyanosis, 2+ pulses and upper and lower extremities. MUSCULOSKELETAL: Muscle strength and tone normal. SPINE: No scoliosis or deformity SKIN: No rashes CENTRAL NERVOUS SYSTEM: Alert and oriented -3. No focal deficits, tone is normal in all 4 extremities. PSYCHIATRIC: Alert and oriented -3. Appropriate affect. Intact judgment and insight. - Labs CBC & Chem 7: 06/03/17 07:19 06/03/17 07:19 Labs: Abnormal Lab Results - Last 24 Hours (Table) 06/02/17 06/02/17 06/02/17 Range/Units 09:12 10:59 12:57 WBC (3.8-10.6) k/uL RBC (3.80-5.40) m/uL Hgb (11.4-16.0) gm/dL Hct (34.0-46.0) % MCHC (31.0-37.0) g/dL Neutrophils # (1.3-7.7) k/uL Creatinine (0.52-1.04) mg/dL POC Glucose (mg/dL) 359 H 269 H 146 H (75-99) mg/dL 06/02/17 06/02/17 06/02/17 Range/Units 15:15 16:48 20:22 WBC (3.8-10.6) k/uL RBC (3.80-5.40) m/uL Hgb (11.4-16.0) gm/dL Hct (34.0-46.0) % MCHC (31.0-37.0) g/dL Neutrophils # (1.3-7.7) k/uL Creatinine (0.52-1.04) mg/dL POC Glucose (mg/dL) 256 H 280 H 357 H (75-99) mg/dL 06/03/17 06/03/17 06/03/17 Range/Units 06:55 07:19 07:19 WBC 11.0 H (3.8-10.6) k/uL RBC 3.52 L (3.80-5.40) m/uL Hgb 9.9 L (11.4-16.0) gm/dL Hct 32.0 L (34.0-46.0) % MCHC 30.8 L (31.0-37.0) g/dL Neutrophils # 7.8 H (1.3-7.7) k/uL Creatinine 0.48 L (0.52-1.04) mg/dL POC Glucose (mg/dL) 110 H (75-99) mg/dL Microbiology - Last 24 Hours (Table) 05/31/17 19:20 Blood Culture - Preliminary Blood No Growth after 48 hours 05/31/17 21:30 Urine Culture - Final Urine,Clean Catch Assessment and Plan Plan: Assessment: 1 acute COPD exacerbation secondary to a right lower lobe pneumonia. The patient was treated essentially at [facility] with good clinical response and she is in the process of recovering 2 abnormal mediastinal lymphadenopathy. Based on the report, the patient has some nonspecific enlargement of the pretracheal and subcarinal lymph nodes. The films will be reviewed once the images uploaded to our system. No clear concern for an underlying malignancy. 3 right lower lobe pneumonia, improving clinically 4 COPD exacerbation 5 hypoxemia secondary to above the patient is improving, patient is currently off the oxygen with O2 sat at 93%. 6 diabetes mellitus with steroid-induced hyperglycemia 7 hypertension 8 obesity Plan Patient is doing well, vital signs are stable, afebrile, no growth on blood and urine culture, sputum cultures pending. Tolerating activity, lung sounds still positive for some limited wheezing over right posterior lower lobe, patient still has mildly bronchospastic cough, especially in the morning, self- limiting. From pulmonary standpoint patient is cleared for discharge, finish outpatient course of Zithromax and Ceftin, prednisone taper. Follow-up with Dr. Zamorano in the office in one week. Patient will need outpatient PFT, will need follow-up on the nonspecific enlargement of the pretracheal and subcarinal lymph nodes with CT chest down the road. I performed a history & physical examination of the patient and discussed their management with my nurse practitioner, Flaca Barr. I reviewed the nurse practitioner's note and agree with the documented findings and plan of care. Lung sounds positive for some limited wheezing over right posterior lower lobe. The findings and the impression was discussed with the patient. I attest to the documentation by the nurse practitioner. Time with Patient: Less than 30
[2017-06-03] MEDS ORDERED: predniSONE 20 MG TAB PO SCH (09:00)
[2017-06-03] MEDS: SYMBICORT 160-4.5 MCG INHALER INHALATION SCH (09:37)
[2017-06-03] MEDS: IPRATROPIUM-ALBUTEROL 3 ML NEB INHALATION SCH ×3 (09:37→16:56)
--- NOTE | 2017-06-03 11:05 | PN ---
PROGRESS NOTE DATE OF SERVICE: 06/02/2017 This 51-year-old woman was admitted with pneumonia, also had recent flu-like syndrome. The patient also has COPD. Patient is improving significantly. Most recent chest x- ray was noted. Dr. Jimenez is following the patient closely. No chest pain. No palpitations. No fever. The patient also had mediastinal lymphadenopathy, recommend outpatient followup. PHYSICAL EXAM: Alert and oriented x3. Pulse is 94, blood pressure 170/69, respirations 16, temperature 98.2, pulse ox 94% on room air. HEENT: Conjunctivae normal. NECK: No jugular venous distension. CARDIOVASCULAR: S1, S2. RESPIRATORY: Breath sounds diminished at the bases, scattered rhonchi, no crackles. Abdomen is soft, nontender. LEGS: No edema. No swelling. NERVOUS SYSTEM: No focal deficits. LABS: WBC 7.3, hemoglobin is 10.3. Accu-Cheks are noted. ASSESSMENT: 1. Chronic obstructive pulmonary disease acute exacerbation with acute right lower lobe pneumonia, possibly gram-negative with acute hypoxic respiratory failure. 2. Anemia, normocytic anemia of chronic disease. 3. Mediastinal subcarinal lymphadenopathy in the CAT scan. 4. Diabetes mellitus type 2, uncontrolled. 5. Hypertension. 6. History of pneumonia. 7. History of chronic obstructive pulmonary disease. 8. History of nicotine dependence. 9. History of possible recent flu. RECOMMENDATION: Recommend to continue current management and symptomatic treatment at this time. Will monitor patient closely. Otherwise, stop the drip and start insulin. Patient is on p.o. steroids. Closely follow with Dr. Jimenez. Guarded prognosis. Further recommendations to follow. MMODL / IJN: [id number] /
[2017-06-03 11:38] LABS: Glucose,Whole Blood 157 mg/dL (75-99)
[2017-06-03 13:11] VITALS: PULSE 82
--- NOTE | 2017-06-04 07:29 | DS ---
DISCHARGE SUMMARY FINAL DIAGNOSES: 1. Chronic obstructive pulmonary disease acute exacerbation with acute right lower lobe pneumonia possibly gram-negative with acute hypoxic respiratory failure. 2. Anemia normocytic anemia of chronic disease. 3. Mediastinal subcarinal lymphadenopathy on the CAT scan. 4. Diabetes mellitus type 2 uncontrolled. 5. Hypertension. 6. History of pneumonia. 7. History of chronic obstructive pulmonary disease. 8. History of nicotine dependence. 9. History of recent possible flu. DISCHARGE DISPOSITION: Patient will be discharged in a stable condition with guarded prognosis. Total time taken 35 minutes. HISTORY OF PRESENT ILLNESS: This 51-year-old woman who presented with multiple medical issues admitted with COPD acute exacerbation with right lower lobe pneumonia. Patient treated with bronchodilators, antibiotics, improved significantly. Blood sugars also controlled. Dr. Jimenez saw the patient. Recommended the patient could be discharged. On exam, vital signs are stable. CARDIOVASCULAR: S1 and S2 muffled. RESPIRATORY: A few scattered rhonchi. ABDOMEN: Soft. NERVOUS SYSTEM: No focal deficits. DISCHARGE ADVICE: 1. Diet is cardiac. 2. Activity limited until followup. 3. Follow up with Dr. Machado In 2 to 3 days. 4. Accu-Cheks a.c. and at bedtime and results to Dr. Machado. 5. Follow up with Dr. Zamorano as recommended. MEDICATIONS: The medications as follows: 1. Albuterol q.i.d. and p.r.n. 2. Norvasc 10 mg p.o. daily. 3. Zithromax 500 mg p.o. daily for 5 days. 4. Symbicort two puffs b.i.d. 5. Ceftin 500 mg p.o. b.i.d. for one week. 6. NovoLog 2 units t.i.d. with meals and plus scale, hold if the Accu-Cheks less than 120. 7. Levemir 30 units subcutaneously b.i.d. Hold if the Accu-Cheks less than 120. 8. Humalog scale 150 to 200, two units; 201 to 250, four units; 251 to 300, six units; 301 to 350, eight units; 351 to 400, ten units. Less than 70 and more than 400 [address]. 9. Cozaar 100 mg p.o. daily. 10.Glucophage 1000 mg p.o. b.i.d. 11.Toprol XL 100 mg p.o. daily. 12.Protonix 40 mg b.i.d. 13.Prednisone taper; that will be 40 mg daily for 3 days, 30 for 3 days, 20 for 3 days and then discontinue. MMBRIGIDAL / DALLINN: [id number] /
== END 2017-06-03 15:30 | disposition home or self-care (01) | DRG 177 ==
LOC: 3SUR 18:47
PROVIDERS: ADMIT Hospitalist; ATTEND Hospitalist
DX: J15.6 Pneumonia due to other Gram-negative bacteria (principal); J96.01 Acute respiratory failure with hypoxia; J44.0 Chronic obstructive pulmonary disease with (acute) lower respiratory infection; J44.1 Chronic obstructive pulmonary disease with (acute) exacerbation; J90 Pleural effusion, not elsewhere classified; D63.8 Anemia in other chronic diseases classified elsewhere; T38.0X5A Adverse effect of glucocorticoids and synthetic analogues, initial encounter; E11.65 Type 2 diabetes mellitus with hyperglycemia; E66.9 Obesity, unspecified; I10 Essential (primary) hypertension; Z79.899 Other long term (current) drug therapy; Z87.01 Personal history of pneumonia (recurrent); Z87.891 Personal history of nicotine dependence; Z79.84 Long term (current) use of oral hypoglycemic drugs; Z79.51 Long term (current) use of inhaled steroids; Z88.8 Allergy status to other drugs, medicaments and biological substances
CPT/HCPCS: 71045; 71046; 80048; 80053; 81003; 83036; 83735; 85025; 87040; 87070; 87086; 87205; 87502; 94640; 94760